=== PATIENT | female | born 1985 | race Caucasian/White ===

== ENCOUNTER 2019-12-26 06:05 | Emergency (ER) | payer MEDICAID ==
[~2019-12-26] VITALS: Ht 170.2 cm; Wt 68.0 kg
[2019-12-26] MEDS ORDERED: OMEP10CA5 PO (06:14)
[2019-12-26] MEDS ORDERED: [UNRECOGNIZED DRUG - REMARK] (06:15)
[2019-12-26] MEDS ORDERED: KETOROLAC TROMETHAMINE 15 MG INJ IVP ONE (06:45)
[2019-12-26] MEDS ORDERED: ONDANSETRON 4 MG/2 ML VIAL IV ONE (06:45)
[2019-12-26] MEDS ORDERED: IV NORMAL SALINE 1000 ML BAG IV ONE (06:45)
[2019-12-26] MEDS ORDERED: ONDANSETRON 4 MG/2 ML VIAL ONE (06:45)
[2019-12-26] MEDS ORDERED: KETOROLAC TROMETHAMINE 30 MG INJ ONE (06:45)
[2019-12-26] MEDS ORDERED: FAMOTIDINE. 20 MG/2 ML VIAL IV ONE ×2 (06:45)
[2019-12-26 06:51] LABS: BASOPHILS % (AUTO) 0.6 % (0.0-2.0); EOSINOPHILS # (AUTO) 0.1 K/uL (0.0-0.7); HEMOGLOBIN 13.8 g/dL (10.9-14.3); LYMPHOCYTES # (AUTO) 1.4 K/uL (20.0-40.0); LYMPHOCYTES % (AUTO) 20.6 % (20.5-51.5); MEAN CORPUSCULAR HEMOGLOBIN 30.5 uug (24.7-32.8); MEAN CORPUSCULAR HGB CONC 35 g/dL (32.3-35.6); MEAN CORPUSCULAR VOLUME 86.2 fL (75.5-95.3); MONOCYTES # (AUTO) 0.3 K/uL (2.0-10.0); MONOCYTES % (AUTO) 4.8 % (0.0-11.0); NEUTROPHILS # (AUTO) 4.9 K/uL (1.8-8.9); PLATELET COUNT (AUTO) 195 K/uL (179-408); RED BLOOD CELL COUNT(AUTO) 4.52 MIL/uL (3.63-4.92); WHITE BLOOD COUNT (AUTO) 6.7 K/uL (3.8-11.8)
[2019-12-26 06:58] LABS: CREATININE 0.7 mg/dL (0.6-1.3); POTASSIUM 3.5 mmol/L (3.5-5.1)
[2019-12-26 07:00] LABS: *BILIRUBIN,URIN NEGATIVE (NEGATIVE); *BLOOD, URINE 2+ (NEGATIVE); *CLARITY,URINE CLEAR (CLEAR); *COLOR,URINE YELLOW (YELLOW); *KETONES,URINE 1+ (NEGATIVE); LEUKOCYTE ESTERASE ,URINE NEGATIVE (NEGATIVE); NITRITE, URINE NEGATIVE (NEGATIVE); UGLUCOSE NEGATIVE (NEGATIVE)
--- NOTE | 2019-12-26 07:00 | NUR ---
RECEIVED PT AWAKE AND ALERT RESPIRATION SPONT AND EASY C/O ABDOMINALE PAIN CAME AND GREG FOR 4 DAYS GOTING WORSE LAST NIGHT ABDOMIN REAVED NOW AFTER TREAMENT SOFT NO DISTENTION C/O ABDOMINE PLOTTED DINESES N/V
[2019-12-26 07:01] LABS: *URINE HCG, QUAL NEGATIVE (NEGATIVE)
--- NOTE | 2019-12-26 07:01 | NUR ---
Report given to Phyllis mathias.
[2019-12-26 07:04] LABS: BILIRUBIN,DIRECT 0.3 mg/dL (0.0-0.2); BILIRUBIN,TOTAL 1.7 mg/dL (0.2-1.0); TOTAL PROTEIN, SERUM 8.3 g/dL (6.4-8.2)
--- NOTE | 2019-12-26 07:45 | NUR ---
TO CT SCAN ABDOMIN VIA WC STABLE V
--- NOTE | 2019-12-26 08:40 | NUR ---
dr. shahab de la fuente with pt up date with lab result d/c instracttion and rx given to pt fully and vrblized understood d/c home stable vs abdomin soft none tender to touch dineses n/v waking with saedy gait
[2019-12-26 08:57] VITALS: BP 120/68
[2019-12-26 09:27] LABS: BACTERIA,URINE FEW /HPF (NONE SEEN); SQUAMOUS EPITHELIAL CELL,UR FEW /HPF (NONE SEEN); URINE AMORPHOUS URATE MODERATE /HPF; WBC,URINE 0-3 /HPF (0-3)
== END 2019-12-26 08:55 | disposition home or self-care (01) ==
LOC: ER 06:07
DX: R10.31 Right lower quadrant pain (principal); N80.9 Endometriosis, unspecified; K21.9 Gastro-esophageal reflux disease without esophagitis; Z79.899 Other long term (current) drug therapy
CPT/HCPCS: 36415; 74176; 80048; 80076; 81001; 83690; 84703; 85025; 96374; 96375; 99284; J1885; J2405; J3490; A4663; J7030

== ENCOUNTER 2021-04-27 22:57 | Emergency (ER) | payer BC, MEDICAID ==
[~2021-04-27] VITALS: Ht 170.2 cm; Wt 68.0 kg
[~2021-04-27 22:57] MED LIST: OMEP10CA5 PO; [UNRECOGNIZED DRUG - REMARK]
[2021-04-27] MEDS ORDERED: OXYCODONE/APAP 5-325 MG TABLET PO ONE (23:45)
[2021-04-27] MEDS ORDERED: OXYCODONE/APAP 5-325 MG TABLET ONE (23:59)
[2021-04-28] MEDS ORDERED: OXYC-128 PO (00:37)
[2021-04-28] MEDS ORDERED: ONDA4TAB5 PO (00:37)
--- NOTE | 2021-04-28 01:02 | NUR ---
Patient discharged to home in stable condition. Written and verbal after care instructions given. Patient verbalizes understanding of instructions. Stressed follow up or return to ER for worsening s/s. pt ambulatory denies pain.
[2021-04-28 01:03] VITALS: BP 123/74
== END 2021-04-28 01:03 | disposition home or self-care (01) ==
LOC: ER 23:14
DX: S40.012A Contusion of left shoulder, initial encounter (principal); S10.91XA Abrasion of unspecified part of neck, initial encounter; S09.90XA Unspecified injury of head, initial encounter; W18.30XA Fall on same level, unspecified, initial encounter; Y92.89 Other specified places as the place of occurrence of the external cause; K21.9 Gastro-esophageal reflux disease without esophagitis; Z79.899 Other long term (current) drug therapy
CPT/HCPCS: 73020; 73070; 73120; A4663